=== PATIENT | male | born 1995 | race Caucasian/White ===

== ENCOUNTER 2019-05-29 23:09 | Emergency (ER) | payer BC ==
[~2019-05-29] VITALS: Ht 170.2 cm; Wt 82.0 kg
[2019-05-30 00:46] VITALS: BP 117/58
== END 2019-05-30 02:37 | disposition left against medical advice (07) ==
LOC: ER 23:09
DX: Z53.21 Procedure and treatment not carried out due to patient leaving prior to being seen by health care provider (principal)